=== PATIENT | female | born 1970 | race Caucasian/White ===

== ENCOUNTER 2017-10-22 18:12 | Emergency (ER) | payer BC ==
[~2017-10-22] VITALS: Ht 165.1 cm; Wt 96.0 kg
[~2017-10-22 18:12] MED LIST: CELE10TA9 PO; GLUCTAB PO; Z.0.BCPILL PO
[2017-10-22 18:17] VITALS: BP 152/85; PULSE 53; RESP 16; TEMP 98.1; O2SAT 99
--- NOTE | 2017-10-22 18:28 | PD ---
HPI Chief Complaint: Injury Time Seen by Provider: 18:26 Travel History International Travel<30 days: No Contact w/Intl Traveler<30days: No Traveled to known affect area: No History of Present Illness HPI 37-year-old female presents for evaluation of left wrist pain. Symptoms started 5 days ago. She describes it as an aching pain in left wrist that seems to shoot up her left arm. Pain is worse with movement of her left arm. She thought that there may be a "lump" forming on the medial aspect of her left wrist. 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 She has no other complaints at this time. [facility] Past Medical History Hx Anticoagulant Therapy: No Depression: Yes Diabetes: No Diminished Hearing: No ?: Not Past Surgical History Cholecystectomy: Yes Social History Alcohol Use: Yes ("OCCASIONALLY") Tobacco Use: No Substance Use: No Allergies-Medications (Allergen,Severity, Reaction): Coded Allergies: phenytoin (Unverified Allergy, Unknown, Rash, 10/22/17) Reported Meds & Prescriptions Reported Meds & Active Scripts Active Reported Celexa (Citalopram Hydrobromide) 10 Mg Tab 0 PO BID UNKNOWN DOSE Metformin Hcl Er (Metformin HCl) 500 Mg Tab Mg PO BID Control Pills (Miscellaneous Medication) Tab 1 Tab PO DAILY Review of Systems Musculoskeletal: Positive: Pain, No: Limited ROM Skin: Positive Other (denies open wounds) Physical Exam Narrative GENERAL: Well-developed well-nourished female in no acute distress SKIN: Warm and dry. There is no bruising or soft tissue swelling HEAD: Atraumatic. Normocephalic. EYES: Pupils equal and round. No scleral icterus. No injection or drainage. ENT: No nasal bleeding or discharge. Mucous membranes pink and moist. NECK: Trachea midline. No JVD. MUSCULOSKELETAL: No obvious deformities. There is some tenderness to palpation to the medial aspect of the left wrist with no palpable abnormalities. The patient maintains full range of motion of the left wrist. There is pain with flexion and extension of the left wrist. Negative Tinel sign. Capillary refill less than 2 seconds all digits left hand. 2+ radial pulse. NEUROLOGICAL: Awake and alert. No obvious cranial nerve deficits. Motor grossly within normal limits. Normal speech. Data Data Last Documented VS Vital Signs Date Time Temp Pulse Resp B/P (MAP) Pulse Ox O2 Delivery O2 Flow Rate FiO2 10/22/17 18:17 98.1 53 16 152/85 (107) 99 Orders Orders Splint Or Brace Apply/Monitor (10/22/17 18:27) Ed Discharge Order (10/22/17 18:27) MDM Medical Decision Making Medical Screen Exam Complete: Yes Emergency Medical Condition: Yes Medical Record Reviewed: Yes Differential Diagnosis Left wrist tendinitis, ganglionic cyst, carpal tunnel syndrome, sprain, radiculopathy Narrative Course This is a 47-year-old female has been expressing left wrist pain radiating up the left arm for the past several days with no trauma. She does perform repetitive motion activities using her hands as she works as a manicurist. I suspect that the patient has tendinitis in her left wrist. Discussed conservative treatment options including ice, NSAID use, immobilization with Velcro wrist splint, activity modification. She is stable for discharge. Diagnosis Primary Impression: Tendinitis of left wrist Additional Instructions: Decreased motion of the left wrist utilizing Velcro wrist splint. Ice pack several times a day 20 minutes at a time. Take [id number] Motrin for pain. Dosing instructions on the bottle. Follow-up with primary care physician in 2-4 weeks. Return for any emergent medical conditions. Med/Other Pt SpecificInfo: Orthopedic Instructions Disposition: 01 DISCHARGE HOME Condition: Stable Pabol Mendoza Oct 22, 2017 18:28
== END 2017-10-22 18:37 | disposition home or self-care (01) ==
LOC: PHEFT 18:12
DX: M77.9 Enthesopathy, unspecified (principal)
CPT/HCPCS: 99282; L3908; 29125